=== PATIENT | male | born 1975 | race Caucasian/White ===

== ENCOUNTER 2024-11-17 16:40 | Inpatient (IN) | payer OTHER ==
[2024-11-17 17:46] VITALS: BMI 26.6
[2024-11-17] MEDS ORDERED: IBUPROFEN 400 MG TABLET (FP) PO PRN (18:40)
[2024-11-17] MEDS ORDERED: ACETAMINOPHEN 325 MG TABLET (FP) PO PRN (18:40)
[2024-11-17] MEDS ORDERED: NALOXONE (NARCAN) HCL 4 MG/0.1 ML SPRAY NS PRN (18:40)
[2024-11-17] MEDS ORDERED: diazePAM 5 MG TABLET PO PRN (18:40)
[2024-11-17] MEDS ORDERED: MAG HYDROX/AL HYDROX/SIMETH 30 ML UNIT-DOSE CUP PO PRN (18:40)
[2024-11-17] MEDS ORDERED: guaiFENesin 600 MG TABLET.ER (FP) PO PRN (18:40)
[2024-11-17] MEDS ORDERED: BENZOCAINE/MENTHOL (CHLORASEPTIC ) LOZENGE MM PRN (18:40)
[2024-11-17] MEDS ORDERED: MAGNESIUM HYDROX 2400MG/30ML ORAL SUSPENSION 30 ML CUP PO PRN (18:40)
[2024-11-17] MEDS ORDERED: POLYETHYLENE GLYCOL (HEALTHYLAX) 3350 17 GM PACKET PO PRN (18:40)
[2024-11-17] MEDS ORDERED: DICYCLOMINE HCL 10 MG CAPSULE PO PRN (18:40)
[2024-11-17] MEDS ORDERED: BENZONATATE 200 MG CAPSULE PO PRN (18:40)
[2024-11-17] MEDS ORDERED: cloNIDine HCL 0.1 MG TABLET PO PRN (18:44)
[2024-11-17] MEDS: PERMETHRIN 5% TOPICAL CREAM 60 GM TUBE TP ONE (19:44)
[2024-11-17] MEDS: PERMETHRIN (NIX CREAM SCALP RINSE) 59 ML 1% BOTTLE TP ONE (21:00)
[2024-11-17] MEDS: MELATONIN 5 MG TABLETS PO SCH (23:59)
[2024-11-17] MEDS: diazePAM 5 MG TABLET PO SCH (23:59)
[2024-11-18] MEDS: THIAMINE 100 MG TABLET PO SCH
[2024-11-18] MEDS: IBUPROFEN 600 MG TABLET (FP) PO PRN (03:06)
[2024-11-18] MEDS ORDERED: methaDONE HCL 10 MG TABLET (FOR DETOX USE ONLY) PO ONE (10:00)
[2024-11-18] MEDS: PRENATAL VITAMINS W/ FOLIC ACID TABLET (FP) PO SCH (10:52)
[2024-11-18] MEDS: ONDANSETRON *ODT* 4 MG TABLET SL PRN (10:54)
[2024-11-18] MEDS ORDERED: methaDONE HCL 10 MG TABLET (FOR DETOX USE ONLY) PO PRN (11:00)
[2024-11-18 11:30] LABS: HEMATOCRIT 39.9 % (40.1-51.0); HEMOGLOBIN 12.4 g/dL (13.7-17.5); MCHC 31.1 g/dl (32.3-36.5); MEAN CELL VOLUME 97.6 fl (79.0-92.2); MEAN PLT VOLUME 9.2 fl (9.4-12.4); PLATELET COUNT 287 x10^3/uL (163-337); RDW 13.7 % (12.2-16.1)
[2024-11-18 11:32] LABS: CHLORIDE 100 mmol/L (98-107); POTASSIUM 3.8 mmol/L (3.5-5.1); SODIUM 137 mmol/L (136-145)
[2024-11-18 11:44] LABS: ANION GAP 7 mmol/L (4-13); BLOOD UREA NITROGEN 12.4 mg/dL (7-18); CALCIUM 8.8 mg/dL (8.5-10.1); CO2 30 mmol/L (21-32); GLUCOSE,RANDOM 93 mg/dL (74-106)
[2024-11-18 11:45] LABS: ALBUMIN 2.8 g/dl (3.4-5.0)
[2024-11-18 11:47] LABS: SGPT/ALT 10 U/L (13-61)
[2024-11-18 11:48] LABS: CREATININE 0.6 mg/dL (0.55-1.3); SGOT/AST 14 U/L (15-37)
[2024-11-18 11:49] LABS: BILIRUBIN,TOTAL 0.4 mg/dL (0.2-1); TOT PROT 5.8 g/dl (6.4-8.2)
[2024-11-18 11:50] LABS: ALK PHOS 72 U/L (45-117)
[2024-11-18] MEDS: risperiDONE 1 MG TABLET PO SCH (12:15)
[2024-11-18] MEDS: PERMETHRIN 5% TOPICAL CREAM 60 GM TUBE TP ONE (17:30)
[2024-11-18] MEDS: BISMUTH SUBSALICYLATE 524 MG/30 ML PO PRN (22:31)
[2024-11-19] MEDS: diazePAM 5 MG TABLET PO SCH (05:50)
[2024-11-19] MEDS: LOPERAMIDE HCL 2 MG CAPSULE PO PRN (09:17)
[2024-11-19] MEDS: hydrOXYzine PAMOATE 25 MG CAPSULE (FP) PO PRN (09:17)
[2024-11-19] MEDS: METHOCARBAMOL 500 MG TABLET PO PRN (09:17)
[2024-11-19] MEDS: CALAMINE 8% TOPICAL LOTION 177 ML BOTTLE TP SCH (13:58)
[2024-11-19] MEDS: CALMINE 3% AND PRAMOXINE 1% 118 ML BOTTLE TP SCH (14:35)
[2024-11-20] MEDS: diazePAM 5 MG TABLET PO SCH (05:56)
[2024-11-20] MEDS ORDERED: methaDONE HCL 10 MG TABLET (FOR DETOX USE ONLY) PO ONE (10:00)
[2024-11-20] MEDS ORDERED: CALMINE 3% AND PRAMOXINE 1% 118 ML BOTTLE TP SCH (10:00)
[2024-11-20] MEDS: PNEUMOC 20-VAL CONJ-DIP CRM/PF 0.5 ML SYRINGE IM ONE (12:20)
[2024-11-21] MEDS: diazePAM 5 MG TABLET PO ONE (05:57)
[2024-11-21 09:10] VITALS: BP 139/73; PULSE 96; RESP 18; TEMP 97.7
[2024-11-22] MEDS ORDERED: methaDONE HCL 10 MG TABLET (FOR DETOX USE ONLY) PO ONE (10:00)
== END 2024-11-21 08:55 | disposition home or self-care (01) | DRG 774 ==
LOC: YASAS 16:40 → Y6N 19:00
PROVIDERS: ADMIT Allergy & Immunology; ATTEND Allergy & Immunology
PROC: HZ2ZZZZ Detoxification Services for Substance Abuse Treatment (ICD-10-PCS; principal; 2024-11-17)
DX: F10.230 Alcohol dependence with withdrawal, uncomplicated (principal); F14.20 Cocaine dependence, uncomplicated; F12.20 Cannabis dependence, uncomplicated; F17.210 Nicotine dependence, cigarettes, uncomplicated; F19.282 Other psychoactive substance dependence with psychoactive substance-induced sleep disorder; D50.9 Iron deficiency anemia, unspecified; G40.909 Epilepsy, unspecified, not intractable, without status epilepticus; I10 Essential (primary) hypertension; K21.9 Gastro-esophageal reflux disease without esophagitis; B88.8 Other specified infestations
CPT/HCPCS: 36415; 71045-TC-FY; 80053; 80305; 80307; 85027; 86780; 93005; 93010; Q0162